=== PATIENT | female | born 1960 | race Caucasian/White ===

== ENCOUNTER 2021-05-31 12:25 | Emergency (ER) | payer OTHER, SELFPAY ==
[~2021-05-31] VITALS: Ht 170.2 cm; Wt 141.5 kg
[2021-05-31 12:36] VITALS: BP_SYST 155
--- NOTE | 2021-05-31 12:36 | NUR ---
PT IN OUTSIDE TRIAGE TENT AND TRIAGED. AWAITING AVAILABLE ER BED.
--- NOTE | 2021-05-31 12:42 | NUR ---
DOCTOR SHASHANK OUTSIDE TO EVALUATE PT.
[2021-05-31] MEDS ORDERED: CASIRIVIMAB 600 MG, IMDEVIMAB 600 MG in NS 250 ML IV ONE (13:00)
--- NOTE | 2021-05-31 13:38 | NUR ---
X-ray to tent for pt.
--- NOTE | 2021-05-31 13:59 | NUR ---
BROUGHT IN TO BED #7 AND REPORT GIVEN TO TONI
--- NOTE | 2021-05-31 14:10 | NUR ---
Patient to ER bed 7 to gown for evaluation. Side rails up.
--- NOTE | 2021-05-31 14:11 | NUR ---
Pt came into ER for monoclonal antibodies recommended by her pulmonaligist Dr. Cao. Pt is known covid positive since 04/28/2021. Pt reports body aches, non productive cough nausea, SOB, and nausea. Pt is nonfebrile. Pt is AAOX4 speaking full sentences. Pt Vital signs holding HR 105 O2 95% RA RR 20 BP 133/87. Resting in gurney attached to monitor.
--- NOTE | 2021-05-31 14:12 | NUR ---
# 22 gauge angiocath placed to LAC. Use of asceptic technique. Opsite placed over site. Blood return noted. Blood for lab drawn from site. Flushed with 10 cc of normal saline. No evidence of infiltration noted. Patient tolerated well.
--- NOTE | 2021-05-31 15:18 | NUR ---
Pt resting comfortably vital signs holding. Breathing is even and unlabored. no distress noted at this time.
[2021-05-31 16:03] VITALS: BP_SYST 115
--- NOTE | 2021-05-31 16:03 | NUR ---
Patient given written and verbal discharge instructions and verbalizes understanding. ER MD discussed with patient the results and treatment provided. Patient in stable condition. ID arm band removedPatient educated on pain management and to follow up with PMD. Pain Scale 0/10. Opportunity for questions provided and answered. Medication side effect fact sheet provided.
== END 2021-05-31 16:03 | disposition home or self-care (01) ==
LOC: SED 12:25
DX: U07.1 COVID-19 (principal); D84.9 Immunodeficiency, unspecified
CPT/HCPCS: 36415; 71045; 87426; 99284; J7050; M0243; Q0243